=== PATIENT | male | born 1975 | race Caucasian/White ===

== ENCOUNTER 2017-12-22 15:42 | Observation (INO) | payer BC ==
[2017-12-22] MEDS ORDERED: Levofloxacin/Dextrose 5%-Water 750 MG in Premix Bag 1 BAG IV ONE (16:24)
[2017-12-22] MEDS ORDERED: Sodium Chloride 0.9% 1,000 ML IV ONE ×2 (16:24→16:47)
[2017-12-22] MEDS ORDERED: Acetaminophen 325 MG Tab PO ONE (16:25)
[2017-12-22] MEDS ORDERED: Sodium Chloride 0.9% 500 ML IV ONE (16:48)
--- NOTE | 2017-12-22 16:53 | EDM.PDOC ---
ED HPI GENERAL MEDICAL PROBLEM - General Chief Complaint: Fever Stated Complaint: SHAKING AND SLIGHT FEVER Time Seen by Provider: 12/22/17 16:01 Source of Information: Reports: Patient History Limitations: Reports: No Limitations - History of Present Illness INITIAL COMMENTS - FREE TEXT/NARRATIVE: Patient is a 42-year-old male presents ED complaining of fever, rigors, dysuria , increased frequency, decrease amount, and pain along the right inguinal region that radiates along the right flank and into his back. He states symptoms started approximately 2 weeks ago and it has slowly worsened. Fever is noted last night. In addition with onset of fever he's had a slight cough and some intermittent shortness of breath with rigors. He was evaluated today at the local clinic. Blood work was obtained along with a UA. UA was negative. He was sent home with prescription for Cipro since prostate exam elicited increase size and pain on palpation. States he has had similar symptoms about a year ago that relieved on their own accord. He has no history of kidney stones. No abnormal penile discharge. No testicular pain. No testicle pain or swelling. No hematuria. No diarrhea, constipation, or blood in stool. Right Flank Pain Score (Numeric/FACES): 3 - Related Data Allergies Allergy/AdvReac Type Severity Reaction Status Date / Time No Known Allergies Allergy Verified 12/22/17 16:00 Home Meds: Home Meds Fluticasone Propionate [Flonase] 1 spray NASBOTH DAILY PRN 12/11/15 [History] atorvaSTATin Calcium [Atorvastatin Calcium] 10 mg PO BEDTIME 12/11/15 [History] Lactobacillus Combination No.4 [Probiotic] 1 each PO DAILY 01/07/16 [History] Loratadine [Claritin] 10 mg PO DAILY 12/22/17 [History] Losartan Potassium 25 mg PO DAILY 12/23/17 [History] Past Medical History - Past Health History Medical/Surgical History: Denies Medical/Surgical History Cardiovascular History: Reports: High Cholesterol Gastrointestinal History: Reports: Chronic Diarrhea, Other (See Below) Other Gastrointestinal History: lower abdominal pain Genitourinary History: Reports: Other (See Below) Other Genitourinary History: hematuria - Past Surgical History HEENT Surgical History: Reports: Oral Surgery Musculoskeletal Surgical History: Reports: Shoulder Surgery, Other (See Below) Social & Family History - Family History Family Medical History: Noncontributory - Tobacco Use Smoking Status *Q: Never Smoker - Caffeine Use Caffeine Use: Reports: Coffee, Soda - Recreational Drug Use Recreational Drug Use: No ED ROS GENERAL - Review of Systems Review Of Systems: See Below Constitutional: Reports: Fever, Chills, Malaise, Decreased Appetite HEENT: Reports: No Symptoms Respiratory: Reports: Pleuritic Chest Pain (With coughing at times), Cough. Denies: Shortness of Breath Cardiovascular: Reports: No Symptoms Endocrine: Reports: No Symptoms GI/Abdominal: Reports: Abdominal Pain (Right lower quadrant/inguinal region that radiates along the right flank and low back.), Decreased Appetite, Nausea. Denies: Black Stool, Bloody Stool, Constipation, Diarrhea, Difficulty Swallowing, Distension, Flatus, Hematemesis, Hematochezia, Vomiting : Reports: Dysuria, Flank Pain, Frequency, Urgency Musculoskeletal: Reports: Back Pain (Low back pain) Skin: Reports: No Symptoms Neurological: Reports: No Symptoms Psychiatric: Reports: No Symptoms ED EXAM, GI/ABD - Physical Exam Exam: See Below Exam Limited By: No Limitations General Appearance: Alert, WD/WN, Mild Distress Eyes: Bilateral: Normal Appearance Ears: Hearing Grossly Normal Nose: Normal Inspection Throat/Mouth: Normal Inspection, Normal Oropharynx, Normal Voice, No Airway Compromise Head: Atraumatic, Normocephalic Neck: Normal Inspection, Supple Respiratory/Chest: No Respiratory Distress, Lungs Clear, Normal Breath Sounds, No Accessory Muscle Use, Chest Non-Tender Cardiovascular: Normal Peripheral Pulses, Regular Rate, Rhythm GI/Abdominal Exam: Normal Bowel Sounds, Soft, No Organomegaly, No Distention, Tender (Along the right inguinal region, right flank, and low back.) (Male) Exam: Deferred (No complaints) Rectal (Males) Exam: Deferred Back Exam: Normal Inspection. No: CVA Tenderness (L), CVA Tenderness (R) Extremities: Normal Inspection Neurological: Alert, Oriented, CN II-XII Intact, Normal Cognition, No Motor/ Sensory Deficits Course - Vital Signs Last Recorded V/S: Last Vital Signs Temp 97.7 F 12/23/17 08:59 Pulse 73 12/23/17 08:59 Resp 18 12/23/17 08:59 BP 126/98 H 12/23/17 09:47 Pulse Ox 96 12/23/17 08:59 - Orders/Labs/Meds Orders: Active Orders 24 hr Category Date Time Status Regular Diet [DIET] Diet 12/22/17 Dinner Active CULTURE BLOOD [BC] Stat Lab 12/22/17 16:47 Received CULTURE BLOOD [BC] Stat Lab 12/22/17 16:53 Received CULTURE URINE [RM] Stat Lab 12/22/17 16:05 Received CULTURE URINE [RM] Stat Lab 12/22/17 17:45 Results Blood Culture x2 Reflex Set [OM.PC] Stat Oth 12/22/17 16:23 Ordered Medication Orders Acetaminophen (Tylenol) 650 mg PO Q4H PRN PRN Reason: Pain (Mild 1-3)/fever Hydrocodone Bitart/Acetaminophen ([place] 325-5 Mg) 1 tab PO Q4H PRN PRN Reason: Pain (moderate 4-6) Albuterol/Ipratropium (Duoneb 3.0-0.5 Mg/3 Ml) 3 ml NEB Q4H PRN PRN Reason: Shortness Of Breath/wheezing Bisacodyl (Dulcolax) 5 mg PO DAILY PRN PRN Reason: Constipation Docusate Sodium (Colace) 100 mg PO BID PRN PRN Reason: Constipation Flunisolide (Nasalide Nasal [place]) 0 ml NASBOTH Q12H [facility] Last Admin: 12/23/17 11:34 Dose: Not Given Admin: 12/22/17 23:05 Dose: 2 spray Hydralazine HCl (Apresoline) 20 mg IVPUSH Q4H PRN PRN Reason: Hypertension Hydromorphone HCl (Dilaudid) 0.5 mg IVPUSH Q4H PRN PRN Reason: Pain (severe 7-10) Promethazine HCl 12.5 mg/ (Sodium Chloride) 50.5 mls @ 100 mls/hr IV Q6H PRN PRN Reason: Nausea/Vomiting Sodium Chloride (Normal Saline) 1,000 mls @ 100 mls/hr IV ASDIRECTED [facility] Last Admin: 12/23/17 11:35 Dose: 100 mls/hr Infusion: 12/23/17 11:35 Dose: 100 mls/hr Admin: 12/23/17 01:38 Dose: 100 mls/hr Levofloxacin/Dextrose 500 mg/ (Premix) 100 mls @ 100 mls/hr IV Q24H [facility] Last Admin: 12/23/17 09:50 Dose: 100 mls/hr Loratadine (Claritin) 10 mg PO DAILY [facility] Last Admin: 12/23/17 09:48 Dose: 10 mg Lorazepam (Ativan) 2 mg IVPUSH Q4H PRN PRN Reason: Seizures Lorazepam (Ativan) 1 mg IV Q6H PRN PRN Reason: Anxiety Magnesium Sulfate (Pharmacy To Dose - Magnesium Replacement) 0 dose .XX ASDIRECTED PRN PRN Reason: RX TO DOSE MAG Metoprolol Tartrate (Lopressor) 5 mg IVPUSH Q4H PRN PRN Reason: Tachycardia Miscellaneous Information (Remove Patch) 1 ea TRDERM DAILY [facility] Last Admin: 12/23/17 09:49 Dose: Nicotine (Habitrol) 21 mg TRDERM DAILY PRN PRN Reason: Nicotine Dependence Ondansetron HCl (Zofran) 4 mg IV Q6H PRN PRN Reason: Nausea/Vomiting Polyethylene Glycol (Miralax) 17 gm PO DAILY PRN PRN Reason: Constipation Potassium Chloride (Pharmacy To Dose - Potassium Replacement) 0 dose .XX ASDIRECTED PRN PRN Reason: RX TO DOSE K Saccharomyces Boulardii (Florastor) 250 mg PO DAILY [facility] Last Admin: 12/23/17 09:47 Dose: 250 mg Senna/Docusate Sodium (Senna Plus) 1 tab PO BID PRN PRN Reason: Constipation Simvastatin (Zocor) 10 mg PO DAILY [facility] Last Admin: 12/23/17 09:48 Dose: 10 mg Temazepam (Restoril) 15 mg PO BEDTIME PRN PRN Reason: Sleep Last Admin: 12/22/17 23:04 Dose: 15 mg Terazosin HCl (Hytrin) 5 mg PO DAILY [facility] Last Admin: 12/23/17 09:47 Dose: 5 mg Labs: Laboratory Tests 12/22/17 12/22/17 12/22/17 Range/Units 16:12 16:20 16:20 WBC 10.32 H (4.23-9.07) K/mm3 RBC 4.84 (4.63-6.08) M/mm3 Hgb 15.1 (13.7-17.5) gm/L Hct 43.4 (40.1-51.0) % MCV 89.7 (79.0-92.2) fl MCH 31.2 (25.7-32.2) pg MCHC 34.8 (32.2-35.5) g/dl RDW Std Deviation 41.4 (35.1-43.9) fL Plt Count 202 (163-337) K/mm3 MPV 9.9 (9.4-12.3) fl Neut % (Auto) 90.6 H (34.0-67.9) % Lymph % (Auto) 5.2 L (21.8-53.1) % Johnson % (Auto) 3.4 L (5.3-12.2) % Eos % (Auto) 0.4 L (0.8-7.0) Baso % (Auto) 0.2 (0.1-1.2) % Neut # (Auto) 9.35 H (1.78-5.38) K/mm3 Lymph # (Auto) 0.54 L (1.32-3.57) K/mm3 Johnson # (Auto) 0.35 (0.30-0.82) K/mm3 Eos # (Auto) 0.04 (0.04-0.54) K/mm3 Baso # (Auto) 0.02 (0.01-0.08) K/mm3 Manual Slide Review Normal smear PT 12.0 (9.5-12.1) SECONDS INR 1.10 APTT 26 (24-31) SECONDS Sodium 139 (136-145) mEq/L Potassium 3.4 L (3.5-5.1) mEq/L Chloride 105 (98-107) mEq/L Carbon Dioxide 19 L (21-32) mEq/L Anion Gap 18.4 H (5-15) BUN 19 H (7-18) mg/dL Creatinine 1.4 H (0.7-1.3) mg/dL Est Cr Clr Drug Dosing 76.10 mL/min Estimated GFR (MDRD) 55 (>60) mL/min BUN/Creatinine Ratio 13.6 L (14-18) Glucose 160 H (74-106) mg/dL Lactic Acid (0.4-2.0) mmol/L Calcium 9.3 (8.5-10.1) mg/dL Total Bilirubin 1.0 (0.2-1.0) mg/dL AST 22 (15-37) U/L ALT 34 (16-63) U/L Alkaline Phosphatase 87 (46-116) U/L C-Reactive Protein (<1.0) mg/dL Total Protein 7.2 (6.4-8.2) g/dl Albumin 3.6 (3.4-5.0) g/dl Globulin 3.6 gm/dL Albumin/Globulin Ratio 1.0 (1-2) Urine Color (Yellow) Urine Appearance (Clear) Urine pH (5.0-8.0) Ur Specific [place] (1.005-1.030) Urine Protein (Negative) Urine Glucose (UA) (Negative) Urine Ketones (Negative) Urine Occult Blood (Negative) Urine Nitrite (Negative) Urine Bilirubin (Negative) Urine Urobilinogen (0.2-1.0) Ur Leukocyte Esterase (Negative) Urine RBC (0-5) /hpf Urine WBC (0-5) /hpf Urine WBC Clumps (NOT SEEN) /hpf Ur Epithelial Cells (0-5) /hpf Urine Bacteria (FEW) /hpf Urine Mucus (FEW) /hpf 12/22/17 12/22/17 12/22/17 Range/Units 16:20 16:20 16:47 WBC (4.23-9.07) K/mm3 RBC (4.63-6.08) M/mm3 Hgb (13.7-17.5) gm/L Hct (40.1-51.0) % MCV (79.0-92.2) fl MCH (25.7-32.2) pg MCHC (32.2-35.5) g/dl RDW Std Deviation (35.1-43.9) fL Plt Count (163-337) K/mm3 MPV (9.4-12.3) fl Neut % (Auto) (34.0-67.9) % Lymph % (Auto) (21.8-53.1) % Johnson % (Auto) (5.3-12.2) % Eos % (Auto) (0.8-7.0) Baso % (Auto) (0.1-1.2) % Neut # (Auto) (1.78-5.38) K/mm3 Lymph # (Auto) (1.32-3.57) K/mm3 [place] # (Auto) (0.30-0.82) K/mm3 Eos # (Auto) (0.04-0.54) K/mm3 Baso # (Auto) (0.01-0.08) K/mm3 Manual Slide Review PT (9.5-12.1) SECONDS INR APTT (24-31) SECONDS Sodium (136-145) mEq/L Potassium (3.5-5.1) mEq/L Chloride (98-107) mEq/L Carbon Dioxide (21-32) mEq/L Anion Gap (5-15) BUN (7-18) mg/dL Creatinine (0.7-1.3) mg/dL Est Cr Clr Drug Dosing mL/min Estimated GFR (MDRD) (>60) mL/min BUN/Creatinine Ratio (14-18) Glucose (74-106) mg/dL Lactic Acid 1.3 (0.4-2.0) mmol/L Calcium (8.5-10.1) mg/dL Total Bilirubin 1.0 (0.2-1.0) mg/dL AST (15-37) U/L ALT (16-63) U/L Alkaline Phosphatase (46-116) U/L C-Reactive Protein 4.8 H* (<1.0) mg/dL Total Protein (6.4-8.2) g/dl Albumin (3.4-5.0) g/dl Globulin gm/dL Albumin/Globulin Ratio (1-2) Urine Color (Yellow) Urine Appearance (Clear) Urine pH (5.0-8.0) Ur Specific [place] (1.005-1.030) Urine Protein (Negative) Urine Glucose (UA) (Negative) Urine Ketones (Negative) Urine Occult Blood (Negative) Urine Nitrite (Negative) Urine Bilirubin (Negative) Urine Urobilinogen (0.2-1.0) Ur Leukocyte Esterase (Negative) Urine RBC (0-5) /hpf Urine WBC (0-5) /hpf Urine WBC Clumps (NOT SEEN) /hpf Ur Epithelial Cells (0-5) /hpf Urine Bacteria (FEW) /hpf Urine Mucus (FEW) /hpf 12/22/17 Range/Units 16:50 WBC (4.23-9.07) K/mm3 RBC (4.63-6.08) M/mm3 Hgb (13.7-17.5) gm/L Hct (40.1-51.0) % MCV (79.0-92.2) fl MCH (25.7-32.2) pg MCHC (32.2-35.5) g/dl RDW Std Deviation (35.1-43.9) fL Plt Count (163-337) K/mm3 MPV (9.4-12.3) fl Neut % (Auto) (34.0-67.9) % Lymph % (Auto) (21.8-53.1) % [place] % (Auto) (5.3-12.2) % Eos % (Auto) (0.8-7.0) Baso % (Auto) (0.1-1.2) % Neut # (Auto) (1.78-5.38) K/mm3 Lymph # (Auto) (1.32-3.57) K/mm3 [place] # (Auto) (0.30-0.82) K/mm3 Eos # (Auto) (0.04-0.54) K/mm3 Baso # (Auto) (0.01-0.08) K/mm3 Manual Slide Review PT (9.5-12.1) SECONDS INR APTT (24-31) SECONDS Sodium (136-145) mEq/L Potassium (3.5-5.1) mEq/L Chloride (98-107) mEq/L Carbon Dioxide (21-32) mEq/L Anion Gap (5-15) BUN (7-18) mg/dL Creatinine (0.7-1.3) mg/dL Est Cr Clr Drug Dosing mL/min Estimated GFR (MDRD) (>60) mL/min BUN/Creatinine Ratio (14-18) Glucose (74-106) mg/dL Lactic Acid (0.4-2.0) mmol/L Calcium (8.5-10.1) mg/dL Total Bilirubin (0.2-1.0) mg/dL AST (15-37) U/L ALT (16-63) U/L Alkaline Phosphatase (46-116) U/L C-Reactive Protein (<1.0) mg/dL Total Protein (6.4-8.2) g/dl Albumin (3.4-5.0) g/dl Globulin gm/dL Albumin/Globulin Ratio (1-2) Urine Color Yellow (Yellow) Urine Appearance Clear (Clear) Urine pH 7.0 (5.0-8.0) Ur Specific [place] 1.020 (1.005-1.030) Urine Protein 1+ H (Negative) Urine Glucose (UA) Negative (Negative) Urine Ketones Negative (Negative) Urine Occult Blood Trace-lysed H (Negative) Urine Nitrite Negative (Negative) Urine Bilirubin Negative (Negative) Urine Urobilinogen 1.0 (0.2-1.0) Ur Leukocyte Esterase Negative (Negative) Urine RBC Not seen (0-5) /hpf Urine WBC 5-10 H (0-5) /hpf Urine WBC Clumps Rare (NOT SEEN) /hpf Ur Epithelial Cells 0-5 (0-5) /hpf Urine Bacteria Few (FEW) /hpf Urine Mucus Not seen (FEW) /hpf Meds: Medications Generic Name Dose Route Start Last Admin Trade Name Freq PRN Reason Stop Dose Admin Acetaminophen 650 mg 12/22/17 22:23 Tylenol PO Q4H PRN Pain (Mild 1-3)/fever Hydrocodone Bitart/Acetaminophen 1 tab 12/22/17 22:23 [place] 325-5 Mg PO Q4H PRN Pain (moderate 4-6) Albuterol/Ipratropium 3 ml 12/22/17 22:23 Duoneb 3.0-0.5 Mg/3 Ml NEB Q4H PRN Shortness Of Breath/wheezing Bisacodyl 5 mg 12/22/17 22:23 Dulcolax PO DAILY PRN Constipation Docusate Sodium 100 mg 12/22/17 22:23 Colace PO BID PRN Constipation Flunisolide 0 ml 12/22/17 23:00 12/23/17 11:34 Nasalide Nasal [place] NASBOTH Not Given Q12H L[facility]NA Hydralazine HCl 20 mg 12/22/17 22:23 Apresoline IVPUSH Q4H PRN Hypertension Hydromorphone HCl 0.5 mg 12/22/17 22:45 Dilaudid IVPUSH Q4H PRN Pain (severe 7-10) Promethazine HCl 12.5 mg/ 50.5 mls @ 100 mls/hr 12/22/17 22:23 Sodium Chloride IV Q6H PRN Nausea/Vomiting Sodium Chloride 1,000 mls @ 100 mls/hr 12/22/17 22:30 12/23/17 11:35 Normal Saline IV 100 mls/hr ASDIRECTED L[facility]NA Administration Levofloxacin/Dextrose 500 mg/ 100 mls @ 100 mls/hr 12/23/17 09:00 12/23/17 09 :50 Premix IV 100 mls/hr Q24H [facility] Administration Loratadine 10 mg 12/23/17 09:00 12/23/17 09:48 Claritin PO 10 mg DAILY [facility] Administration Lorazepam 2 mg 12/22/17 22:23 Ativan IVPUSH Q4H PRN Seizures Lorazepam 1 mg 12/22/17 22:23 Ativan IV Q6H PRN Anxiety Magnesium Sulfate 0 dose 12/22/17 22:30 Pharmacy To Dose - Magnesium Replacement .XX ASDIRECTED PRN RX TO DOSE MAG Metoprolol Tartrate 5 mg 12/22/17 22:23 Lopressor IVPUSH Q4H PRN Tachycardia Miscellaneous Information 1 ea 12/23/17 09:00 12/23/17 09:49 Remove Patch TRDERM Not Given DAILY [facility] Nicotine 21 mg 12/22/17 22:23 Habitrol TRDERM DAILY PRN Nicotine Dependence Ondansetron HCl 4 mg 12/22/17 22:23 Zofran IV Q6H PRN Nausea/Vomiting Polyethylene Glycol 17 gm 12/22/17 22:23 Miralax PO DAILY PRN Constipation Potassium Chloride 0 dose 12/22/17 22:30 Pharmacy To Dose - Potassium Replacement .XX ASDIRECTED PRN RX TO DOSE K Saccharomyces Boulardii 250 mg 12/23/17 09:00 12/23/17 09:47 Florastor PO 250 mg DAILY [facility] Administration Senna/Docusate Sodium 1 tab 12/22/17 22:23 Senna Plus PO BID PRN Constipation Simvastatin 10 mg 12/23/17 09:00 12/23/17 09:48 Zocor PO 10 mg DAILY [facility] Administration Temazepam 15 mg 12/22/17 22:23 12/22/17 23:04 Restoril PO 15 mg BEDTIME PRN Administration Sleep Terazosin HCl 5 mg 12/23/17 09:00 12/23/17 09:47 Hytrin PO 5 mg DAILY [facility] Administration Discontinued Medications Generic Name Dose Route Start Last Admin Trade Name Freq PRN Reason Stop Dose Admin Acetaminophen 975 mg 12/22/17 16:25 12/22/17 16:32 Tylenol PO 12/22/17 16:26 975 mg NOW ONE Administration Diatrizoate Meglum/Diatrizoate Sod 120 ml 12/22/17 17:07 12/22/17 18:13 Gastrografin 37% PO 12/22/17 17:08 120 ml ONETIME ONE Administration Levofloxacin/Dextrose 750 mg/ 150 mls @ 100 mls/hr 12/22/17 16:24 12/22/17 16 :35 Premix IV 12/22/17 17:53 100 mls/hr Q24H ONE Administration Sodium Chloride 1,000 mls @ 999 mls/hr 12/22/17 16:24 12/22/17 16:35 Normal Saline IV 12/22/17 17:24 999 mls/hr ASDIRECTED ONE Administration Sodium Chloride 1,000 mls @ 999 mls/hr 12/22/17 16:47 12/22/17 19:03 Normal Saline IV 12/22/17 17:47 999 mls/hr ONETIME ONE Administration Sodium Chloride 1,000 mls @ 999 mls/hr 12/22/17 17:00 Normal Saline IV ASDIRECTED [facility] Sodium Chloride 500 mls @ 999 mls/hr 12/22/17 16:48 12/22/17 20:14 Normal Saline IV 12/22/17 17:18 999 mls/hr .BOLUS ONE Administration Levofloxacin/Dextrose Confirm 12/23/17 09:33 12/23/17 10:48 Levaquin In D5w 500 Mg/100 Ml Administered 12/23/17 09:34 Not Given Dose 100 mls @ as directed IV .STK-MED ONE Iopamidol 150 ml 12/22/17 17:07 12/22/17 18:13 Isovue-300 (61%) IVPUSH 12/22/17 17:08 150 ml ONETIME ONE Administration Non-Formulary Medication 1 each 12/23/17 09:00 Lactobacillus Combination No.4 [Probiotic] PO DAILY [facility] Potassium Chloride 40 meq 12/23/17 00:00 12/23/17 06:39 Klor-Con M20 PO 12/23/17 04:01 40 meq Q4H [facility] Administration Potassium Chloride 40 meq 12/23/17 06:45 12/23/17 06:55 Klor-Con M20 PO 12/23/17 06:46 Not Given Q4H [facility] - Re-Assessments/Exams Free Text/Narrative Re-Assessment/Exam: On examination patient is warm to touch, tachycardic, complains of pain to the right lower abdomen that radiates around the right flank and low back. He also has a slight cough. IV established with normal saline. Will initiate IVF's per sepsis criteria. Requires 3100 mL of IV fluids. Ordered Levaquin 750 IV. Tylenol 975 mg by mouth. Initial labs and studies include: CBC, chem 14, CRP, blood cultures 2, UA, lactic acid, coag studies, chest x-ray two-view, and also CT the abdomen and pelvis with IV contrast. Labs reviewed: White blood cell count 10.32, neutrophil percentage elevated 90.6, bands are 9.35. Potassium 3.4, AG 18.4, creatinine 1.4, glucose 160, lactic acid 1.3, CRP of 4.8, UA protein one plus, occult plus trace, urine wbc' s 5-10. Urine culture ordered. Chest x-ray impression: Nodular density within the left hilum, noncontrast chest CT recommended. Other incidental findings. Nothing acute is otherwise seen. CT of the chest wo contrast ordered. CT abdomen and pelvis impression: Colonic diverticulosis. No CT evidence of diverticulitis. Unfortunately the CT the abdomen and pelvis with contrast was obtained prior to the CT of the chest. CT of the chest while to be performed on an outpatient basis. 1924 Reassessment, patient is feeling better. Temp 99.4 F. HR 90's. Discussed admission to the hospital with the patient. He agrees admission for IV antibiotics would be okay. 12/22/17 19:[address] Portillo, he has accepted the patient. MCG to be completed by nursing staff. Requests placing order for regular diet. Departure - Departure Time of Disposition: 19:34 Disposition: Admitted As Inpatient 64 Condition: Good Clinical Impression: Prostatitis, acute - Discharge Information - My Orders Last 24 Hours: My Active Orders 12/22/17 16:05 CULTURE URINE [RM] Stat 12/22/17 16:23 Blood Culture x2 Reflex Set [OM.PC] Stat 12/22/17 16:47 CULTURE BLOOD [BC] Stat 12/22/17 16:53 CULTURE BLOOD [BC] Stat 12/22/17 17:45 CULTURE URINE [RM] Stat 12/22/17 Dinner Regular Diet [DIET] - Assessment/Plan Last 24 Hours: My Active Orders 12/22/17 16:05 CULTURE URINE [RM] Stat 12/22/17 16:23 Blood Culture x2 Reflex Set [OM.PC] Stat 12/22/17 16:47 CULTURE BLOOD [BC] Stat 12/22/17 16:53 CULTURE BLOOD [BC] Stat 12/22/17 17:45 CULTURE URINE [RM] Stat 12/22/17 Dinner Regular Diet [DIET]
[2017-12-22] MEDS ORDERED: Sodium Chloride 0.9% 1,000 ML IV SCH (17:00)
[2017-12-22] MEDS ORDERED: Diatrizoate Meglumine/Diatrizoate Sodium 37% 120 ML Bottle PO ONE (17:07)
[2017-12-22] MEDS ORDERED: Iopamidol 612 MG/ML 150 ML Bottle IVPUSH ONE (17:07)
--- NOTE | 2017-12-22 17:25 | CR ---
Chest: Portable view of the chest was obtained. Comparison: Prior chest x-ray of 05/13/15. Heart size and mediastinum are within normal limits for portable technique. Prior cervical spine surgery is seen. Lungs are clear without acute parenchymal change. Nodular density is identified within left hilum possibly due to vascular confluence although noncontrast chest CT recommended to exclude a pulmonary mass. Impression: 1. Nodular density within left hilum, noncontrast chest CT recommended. 2. Other incidental findings. Nothing acute is otherwise seen. Diagnostic code #9
[2017-12-22] MEDS ORDERED: Bisacodyl 5 MG Tab PO PRN (22:23)
[2017-12-22] MEDS ORDERED: Acetaminophen 325 MG Tab PO PRN (22:23)
[2017-12-22] MEDS ORDERED: Metoprolol Tartrate 5 MG/5 ML SDV IVPUSH PRN (22:23)
[2017-12-22] MEDS ORDERED: Ondansetron 4 MG/2 ML SDV IV PRN (22:23)
[2017-12-22] MEDS ORDERED: Acetaminophen/HYDROcodone 325-5 MG Tab PO PRN (22:23)
[2017-12-22] MEDS ORDERED: Nicotine 21 MG/24 Hr Patch TRDERM PRN (22:23)
[2017-12-22] MEDS ORDERED: Promethazine 12.5 MG in Sodium Chloride 0.9% 50 ML IV PRN (22:23)
[2017-12-22] MEDS ORDERED: hydrALAZINE 20 MG/ML SDV IVPUSH PRN (22:23)
[2017-12-22] MEDS ORDERED: Docusate Sodium 100 MG Cap PO PRN (22:23)
[2017-12-22] MEDS ORDERED: LORazepam 2 MG/ML SDV IVPUSH PRN (22:23)
[2017-12-22] MEDS ORDERED: LORazepam 2 MG/ML SDV IV PRN (22:23)
[2017-12-22] MEDS ORDERED: Polyethylene Glycol 3350 Powder 17 GM Packet PO PRN (22:23)
[2017-12-22] MEDS ORDERED: Albuterol/Ipratropium 3.0-0.5 MG/3 ML Neb Soln NEB PRN (22:23)
[2017-12-22] MEDS ORDERED: HYDROmorphone 0.5 MG/0.5 ML Syringe IVPUSH PRN (22:45)
[2017-12-22] MEDS: Temazepam 15 MG Cap PO PRN (23:04)
[2017-12-22] MEDS: Potassium Chloride 20 MEQ Tab.ER PO SCH (23:04)
[2017-12-23] MEDS: Sodium Chloride 0.9% 1,000 ML IV SCH ×3 (01:38→21:32)
[2017-12-23] MEDS: Potassium Chloride 20 MEQ Tab.ER PO SCH (06:39)
[2017-12-23] MEDS ORDERED: Potassium Chloride 20 MEQ Tab.ER PO SCH (06:45)
--- NOTE | 2017-12-23 07:30 | CT ---
CT abdomen and pelvis Technique: Multiple axial sections were obtained from above the dome of the diaphragm inferiorly through the pubic symphysis. Intravenous and oral contrast was utilized. Comparison: Prior CT abdomen and pelvis exam of 12/12/15. Findings: Visualized lung bases show nothing acute. Liver shows no focal parenchymal abnormality. Spleen appears within normal limits. Slight thickening of the distal esophageal wall is seen possibly due to chronic gastroesophageal reflux. Adrenal glands show no nodule. Pancreas is within normal limits. Gallbladder contains no calcified gallstones. Kidneys show symmetric contrast enhancement without hydronephrosis or mass. Aorta shows no aneurysmal dilatation. No retroperitoneal adenopathy is seen. Appendix is seen and is felt to be normal. No pelvic mass or adenopathy is seen. No free fluid or inflammatory change is seen. Minimal diverticulosis is seen near the junction of descending and sigmoid colon without findings of diverticulitis. Bone window settings were reviewed showing scattered degenerative change within the spine. Several anterior wedge deformities noted at the thoracolumbar junction which appear stable and likely are developmental. Impression: 1. Mild thickening of the distal esophageal wall possibly due to chronic gastroesophageal reflux. 2. Several diverticuli without findings of diverticulitis at the junction of the descending and sigmoid colon. 3. Other incidental findings as noted above. Diagnostic code #2 I agree with preliminary report issued by [employer] ([employer] preliminary report dictated on12/22/17, 7:38 PM Central Time) (code #2)
--- NOTE | 2017-12-23 08:22 | PCM.HP ---
H&P History of Present Illness - General Date of Service: 12/23/17 Admit Problem/Dx: Admission Diagnosis/Problem Admission Diagnosis/Problem Prostatitis Source of Information: Patient, Old Records, Provider, RN, RN Notes Reviewed History Limitations: Reports: No Limitations - History of Present Illness Initial Comments - Free Text/Narative: Tam Devlin is a 42 yo male who presented to our ED yesterday evening with complaints of fever, rigors, dysuria, increased urinary frequency, decrease in urine amount, and pain along the right inguinal region which radiates into the right flank and back. Reports symptoms started 2 weeks ago and have been getting worse. He reports the fever started last night and he has had a slight cough with some intermittent shortness of breath. He was seen in the local clinic and a UA was obtained which was negative. He was sent home with a Cipro prescription as his rectal exam noted a large prostate and pain on palpation. He reportedly had symptoms which were similar approximate one year ago and this resolved without treatment. Denies any testicular pain or swelling. Denies hematuria, diarrhea, constipation, or hematochezia. In the ED temperature was 100.4. Pulse was 113. Respirations 18. BP 126/61. Pulse ox 96%. Labs were obtained: W CBC was elevated at 10.32. Hemoglobin good at 15.1. Hematocrit 43.4. He is normocytic. Platelet are good at 202, 000. Neutrophils are elevated at 90.6. PT is 12. INR 1.10. APTT is 26. Sodium is 139. Potassium 3.4. Chloride is 105. Carbon dioxide low at 19. Anion gap is quite high at 18.4. BUN is high at 19. Creatinine is high at 1.4. EGFR is 55. Glucose is high at 160. Calcium is 9.3. Bilirubin 1.0. Liver enzymes looked good with AST at 22, ALT of 34, alkaline phosphatase of 87. Protein is 7.2. Albumin 3.6. Lactic acid is 1.3. Total bilirubin is 1.0. CRP is 4.8. UA is obtained and is negative however trace lysed occult blood 5-10 WBCs are noted. He is given 975 mg by mouth Tylenol and started on 750 mg of Levaquin. He is given a 3100 mL fluid bolus. Urine cultures ordered. Blood cultures were ordered. CT of the abdomen and pelvis with contrast is obtained and interpreted by Dr. Cabrera as "1. Mild thickening of the distal esophageal wall possibly due to chronic esophageal reflux disease. 2. Several diverticula without findings of diverticulitis at the junction of the descending and sigmoid colon. 3. Other incidental findings noted above." Chest x-rays obtained and compared to prior chest x-ray from 2016. This is interpreted by Dr. Cabrera as "1. Nodular density with the left hilum, noncontrast chest CT recommended. 2. Other incidental findings. Nothing acute is otherwise seen." He carries a history of: HLD, chronic diarrhea, hematuria. He was never a smoker. He is a full code. His PCP is Key David PA-C. He is subsequently admitted to the medical floor observation status. Right Flank Pain Score (Numeric/FACES): 3 - Related Data Allergies/Adverse Reactions: Allergies Allergy/AdvReac Type Severity Reaction Status Date / Time No Known Allergies Allergy Verified 12/22/17 16:00 Home Medications: Home Meds Fluticasone Propionate [Flonase] 1 spray NASBOTH DAILY PRN 12/11/15 [History] atorvaSTATin Calcium [Atorvastatin Calcium] 10 mg PO BEDTIME 12/11/15 [History] Lactobacillus Combination No.4 [Probiotic] 1 each PO DAILY 01/07/16 [History] Loratadine [Claritin] 10 mg PO DAILY 12/22/17 [History] Losartan Potassium 25 mg PO DAILY 12/23/17 [History] Past Medical History - Past Health History Medical/Surgical History: Denies Medical/Surgical History Cardiovascular History: Reports: High Cholesterol, Hypertension Gastrointestinal History: Reports: Other (See Below) Other Gastrointestinal History: lower abdominal pain-recently off and on Genitourinary History: Reports: Other (See Below) Other Genitourinary History: hematuria just recently with this diagnosis Oncologic (Cancer) History: Reports: None - Infectious Disease History Infectious Disease History: Reports: Chicken Pox - Past Surgical History HEENT Surgical History: Reports: Oral Surgery GI Surgical History: Reports: Appendectomy, Colonoscopy Musculoskeletal Surgical History: Reports: Other (See Below) Other Musculoskeletal Surgeries/Procedures:: collar bone sx, kush in leg, and cervical sx Social & Family History - Family History Family Medical History: Noncontributory - Tobacco Use Smoking Status *Q: Never Smoker - Caffeine Use Caffeine Use: Reports: Coffee - Recreational Drug Use Recreational Drug Use: No H&P Review of Systems - Review of Systems: Review Of Systems: See Below General: Reports: Fever, Chills, Malaise, Weakness, Fatigue, Decreased Appetite HEENT: Reports: No Symptoms. Denies: Sore Throat, Visual Changes Pulmonary: Reports: Pleuritic Chest Pain (occasional with coughing fits ), Cough. Denies: Shortness of Breath, Wheezing, Sputum Cardiovascular: Reports: No Symptoms. Denies: Chest Pain, Palpitations, Dyspnea on Exertion, Lightheadedness Gastrointestinal: Reports: No Symptoms, Abdominal Pain (RLQ and inguinal region radiating into right flank and lower back ), Nausea. Denies: Constipation, Diarrhea, Difficulty Swallowing, Vomiting Genitourinary: Reports: Dysuria, Frequency, Pain, Urgency, Hematuria (chronic), Retention, Flank Pain Musculoskeletal: Reports: Back Pain (lower) Skin: Reports: No Symptoms Psychiatric: Reports: No Symptoms Neurological: Reports: No Symptoms. Denies: Confusion Hematologic/Lymphatic: Reports: No Symptoms Immunologic: Reports: No Symptoms Exam - Exam Exam: See Below - Vital Signs Vital Signs: Last Vital Signs Temp 97.9 F 12/23/17 03:34 Pulse 65 12/23/17 03:34 Resp 16 12/23/17 03:34 BP 115/73 12/23/17 03:34 Pulse Ox 97 12/23/17 03:34 Weight: 227 lb 12.8 oz - Exam Quality Assessment: DVT Prophylaxis General: Alert, Oriented, Cooperative. No: Mild Distress HEENT: Conjunctiva Clear, EACs Clear, EOMI, Hearing Intact, Mucosa Moist & [place] , Nares Patent, Normal Nasal Septum, Posterior Pharynx Clear, PERRLA Neck: Supple, Trachea Midline Lungs: Clear to Auscultation, Normal Respiratory Effort Cardiovascular: Regular Rate, Regular Rhythm GI/Abdominal Exam: Normal Bowel Sounds, Soft, Non-Tender, No Distention, No Abnormal Bruit (Male) Exam: Deferred Rectal (Males) Exam: Deferred, Other (Dr. Portillo disccused this with paitent on admission however he refused saying he had just had rectal exam at clinic) Back Exam: Normal Inspection, Full Range of Motion Extremities: Normal Inspection, Normal Range of Motion, Non-Tender, No Pedal Edema, Normal Capillary Refill Peripheral Pulses: 2+: Dorsalis Pedis (L), Dorsalis Pedis (R), 3+: Radial (L), Radial (R) Skin: Warm, Dry, Intact Neurological: Cranial Nerves Intact (grossly ) Neuro Extensive - Mental Status: Alert, Oriented x3, Normal Mood/Affect, Normal Cognition, Memory Intact - Patient Data Lab Results Last 24 hrs: Laboratory Results - last 24 hr 12/22/17 12/22/17 12/22/17 Range/Units 16:12 16:20 16:20 WBC 10.32 H (4.23-9.07) K/mm3 RBC 4.84 (4.63-6.08) M/mm3 Hgb 15.1 (13.7-17.5) gm/L Hct 43.4 (40.1-51.0) % MCV 89.7 (79.0-92.2) fl MCH 31.2 (25.7-32.2) pg MCHC 34.8 (32.2-35.5) g/dl RDW Std Deviation 41.4 (35.1-43.9) fL Plt Count 202 (163-337) K/mm3 MPV 9.9 (9.4-12.3) fl Neut % (Auto) 90.6 H (34.0-67.9) % Lymph % (Auto) 5.2 L (21.8-53.1) % [place] % (Auto) 3.4 L (5.3-12.2) % Eos % (Auto) 0.4 L (0.8-7.0) Baso % (Auto) 0.2 (0.1-1.2) % Neut # (Auto) 9.35 H (1.78-5.38) K/mm3 Lymph # (Auto) 0.54 L (1.32-3.57) K/mm3 [place] # (Auto) 0.35 (0.30-0.82) K/mm3 Eos # (Auto) 0.04 (0.04-0.54) K/mm3 Baso # (Auto) 0.02 (0.01-0.08) K/mm3 Manual Slide Review Normal smear PT 12.0 (9.5-12.1) SECONDS INR 1.10 APTT 26 (24-31) SECONDS Sodium 139 (136-145) mEq/L Potassium 3.4 L (3.5-5.1) mEq/L Chloride 105 (98-107) mEq/L Carbon Dioxide 19 L (21-32) mEq/L Anion Gap 18.4 H (5-15) BUN 19 H (7-18) mg/dL Creatinine 1.4 H (0.7-1.3) mg/dL Est Cr Clr Drug Dosing 76.10 mL/min Estimated GFR (MDRD) 55 (>60) mL/min BUN/Creatinine Ratio 13.6 L (14-18) Glucose 160 H (74-106) mg/dL Lactic Acid (0.4-2.0) mmol/L Calcium 9.3 (8.5-10.1) mg/dL Magnesium (1.8-2.4) mg/dl Total Bilirubin 1.0 (0.2-1.0) mg/dL AST 22 (15-37) U/L ALT 34 (16-63) U/L Alkaline Phosphatase 87 (46-116) U/L C-Reactive Protein (<1.0) mg/dL Total Protein 7.2 (6.4-8.2) g/dl Albumin 3.6 (3.4-5.0) g/dl Globulin 3.6 gm/dL Albumin/Globulin Ratio 1.0 (1-2) Urine Color (Yellow) Urine Appearance (Clear) Urine pH (5.0-8.0) Ur Specific [place] (1.005-1.030) Urine Protein (Negative) Urine Glucose (UA) (Negative) Urine Ketones (Negative) Urine Occult Blood (Negative) Urine Nitrite (Negative) Urine Bilirubin (Negative) Urine Urobilinogen (0.2-1.0) Ur Leukocyte Esterase (Negative) Urine RBC (0-5) /hpf Urine WBC (0-5) /hpf Urine WBC Clumps (NOT SEEN) /hpf Ur Epithelial Cells (0-5) /hpf Urine Bacteria (FEW) /hpf Urine Mucus (FEW) /hpf 12/22/17 12/22/17 12/22/17 Range/Units 16:20 16:20 16:47 WBC (4.23-9.07) K/mm3 RBC (4.63-6.08) M/mm3 Hgb (13.7-17.5) gm/L Hct (40.1-51.0) % MCV (79.0-92.2) fl MCH (25.7-32.2) pg MCHC (32.2-35.5) g/dl RDW Std Deviation (35.1-43.9) fL Plt Count (163-337) K/mm3 MPV (9.4-12.3) fl Neut % (Auto) (34.0-67.9) % Lymph % (Auto) (21.8-53.1) % [place] % (Auto) (5.3-12.2) % Eos % (Auto) (0.8-7.0) Baso % (Auto) (0.1-1.2) % Neut # (Auto) (1.78-5.38) K/mm3 Lymph # (Auto) (1.32-3.57) K/mm3 [place] # (Auto) (0.30-0.82) K/mm3 Eos # (Auto) (0.04-0.54) K/mm3 Baso # (Auto) (0.01-0.08) K/mm3 Manual Slide Review PT (9.5-12.1) SECONDS INR APTT (24-31) SECONDS Sodium (136-145) mEq/L Potassium (3.5-5.1) mEq/L Chloride (98-107) mEq/L Carbon Dioxide (21-32) mEq/L Anion Gap (5-15) BUN (7-18) mg/dL Creatinine (0.7-1.3) mg/dL Est Cr Clr Drug Dosing mL/min Estimated GFR (MDRD) (>60) mL/min BUN/Creatinine Ratio (14-18) Glucose (74-106) mg/dL Lactic Acid 1.3 (0.4-2.0) mmol/L Calcium (8.5-10.1) mg/dL Magnesium (1.8-2.4) mg/dl Total Bilirubin 1.0 (0.2-1.0) mg/dL AST (15-37) U/L ALT (16-63) U/L Alkaline Phosphatase (46-116) U/L C-Reactive Protein 4.8 H* (<1.0) mg/dL Total Protein (6.4-8.2) g/dl Albumin (3.4-5.0) g/dl Globulin gm/dL Albumin/Globulin Ratio (1-2) Urine Color (Yellow) Urine Appearance (Clear) Urine pH (5.0-8.0) Ur Specific [place] (1.005-1.030) Urine Protein (Negative) Urine Glucose (UA) (Negative) Urine Ketones (Negative) Urine Occult Blood (Negative) Urine Nitrite (Negative) Urine Bilirubin (Negative) Urine Urobilinogen (0.2-1.0) Ur Leukocyte Esterase (Negative) Urine RBC (0-5) /hpf Urine WBC (0-5) /hpf Urine WBC Clumps (NOT SEEN) /hpf Ur Epithelial Cells (0-5) /hpf Urine Bacteria (FEW) /hpf Urine Mucus (FEW) /hpf 12/22/17 12/23/17 12/23/17 Range/Units 16:50 06:20 06:20 WBC 6.46 (4.23-9.07) K/mm3 RBC 4.48 L (4.63-6.08) M/mm3 Hgb 13.9 (13.7-17.5) gm/L Hct 41.4 (40.1-51.0) % MCV 92.4 H (79.0-92.2) fl MCH 31.0 (25.7-32.2) pg MCHC 33.6 (32.2-35.5) g/dl RDW Std Deviation 43.3 (35.1-43.9) fL Plt Count 178 (163-337) K/mm3 MPV 10.4 (9.4-12.3) fl Neut % (Auto) 54.6 (34.0-67.9) % Lymph % (Auto) 26.9 (21.8-53.1) % [place] % (Auto) 16.9 H (5.3-12.2) % Eos % (Auto) 1.1 (0.8-7.0) Baso % (Auto) 0.3 (0.1-1.2) % Neut # (Auto) 3.53 (1.78-5.38) K/mm3 Lymph # (Auto) 1.74 (1.32-3.57) K/mm3 [place] # (Auto) 1.09 H (0.30-0.82) K/mm3 Eos # (Auto) 0.07 (0.04-0.54) K/mm3 Baso # (Auto) 0.02 (0.01-0.08) K/mm3 Manual Slide Review Normal smear PT (9.5-12.1) SECONDS INR APTT (24-31) SECONDS Sodium 143 (136-145) mEq/L Potassium 4.4 (3.5-5.1) mEq/L Chloride 112 H (98-107) mEq/L Carbon Dioxide 25 (21-32) mEq/L Anion Gap 10.4 (5-15) BUN 12 (7-18) mg/dL Creatinine 1.1 (0.7-1.3) mg/dL Est Cr Clr Drug Dosing 96.85 mL/min Estimated GFR (MDRD) > 60 (>60) mL/min BUN/Creatinine Ratio 10.9 L (14-18) Glucose 122 H (74-106) mg/dL Lactic Acid (0.4-2.0) mmol/L Calcium 8.4 L (8.5-10.1) mg/dL Magnesium 2.1 (1.8-2.4) mg/dl Total Bilirubin (0.2-1.0) mg/dL AST (15-37) U/L ALT (16-63) U/L Alkaline Phosphatase (46-116) U/L C-Reactive Protein 5.4 H* (<1.0) mg/dL Total Protein (6.4-8.2) g/dl Albumin (3.4-5.0) g/dl Globulin gm/dL Albumin/Globulin Ratio (1-2) Urine Color Yellow (Yellow) Urine Appearance Clear (Clear) Urine pH 7.0 (5.0-8.0) Ur Specific [place] 1.020 (1.005-1.030) Urine Protein 1+ H (Negative) Urine Glucose (UA) Negative (Negative) Urine Ketones Negative (Negative) Urine Occult Blood Trace-lysed H (Negative) Urine Nitrite Negative (Negative) Urine Bilirubin Negative (Negative) Urine Urobilinogen 1.0 (0.2-1.0) Ur Leukocyte Esterase Negative (Negative) Urine RBC Not seen (0-5) /hpf Urine WBC 5-10 H (0-5) /hpf Urine WBC Clumps Rare (NOT SEEN) /hpf Ur Epithelial Cells 0-5 (0-5) /hpf Urine Bacteria Few (FEW) /hpf Urine Mucus Not seen (FEW) /hpf Result Diagrams: 12/23/17 06:20 12/23/17 06:20 - Problem List (1) HLD (hyperlipidemia) SNOMED Code(s): 06129284 ICD Code: E78.5 - HYPERLIPIDEMIA, UNSPECIFIED Status: Acute Priority: High Current Visit: Yes (2) Prostatitis, acute SNOMED Code(s): 06491070 ICD Code: N41.0 - ACUTE PROSTATITIS Status: Acute Priority: High Current Visit: Yes Problem List Initiated/Reviewed/Updated: Yes Orders Last 24hrs: Active Orders 24 hr Category Date Time Status Patient Status [ADT] Routine ADT 12/22/17 20:30 Active Height and Weight [RC] 04 Care 12/22/17 22:23 Active Intake and Output [RC] 04,16 Care 12/22/17 22:23 Active Oxygen Therapy [RC] PRN Care 12/22/17 22:23 Active RT Aerosol Therapy [RC] ASDIRECTED Care 12/22/17 22:25 Active Up ad [place] [RC] ASDIRECTED Care 12/22/17 22:23 Active VTE/DVT Education [RC] PER UNIT ROUTINE Care 12/22/17 22:23 Active Vital Signs [RC] Q4HR Care 12/22/17 22:23 Active Regular Diet [DIET] Diet 12/22/17 Dinner Active A1C [GLYCOSYLATED HEMOGLOBIN,HGBA1C] [CHEM] AM Lab 12/23/17 06:20 Received BASIC METABOLIC PANEL,BMP [CHEM] AM Lab 12/24/17 05:11 Ordered BASIC METABOLIC PANEL,BMP [CHEM] AM Lab 12/25/17 05:11 Ordered BASIC METABOLIC PANEL,BMP [CHEM] AM Lab 12/26/17 05:11 Ordered BASIC METABOLIC PANEL,BMP [CHEM] AM Lab 12/27/17 05:11 Ordered C-REACTIVE PROTEIN [CHEM] AM Lab 12/24/17 05:11 Ordered C-REACTIVE PROTEIN [CHEM] AM Lab 12/25/17 05:11 Ordered CBC WITH AUTO DIFF [HEME] AM Lab 12/24/17 05:11 Ordered CBC WITH AUTO DIFF [HEME] AM Lab 12/25/17 05:11 Ordered CBC WITH AUTO DIFF [HEME] AM Lab 12/26/17 05:11 Ordered CBC WITH AUTO DIFF [HEME] AM Lab 12/27/17 05:11 Ordered CULTURE BLOOD [BC] Stat Lab 12/22/17 16:47 Received CULTURE BLOOD [BC] Stat Lab 12/22/17 16:53 Received CULTURE URINE [RM] Stat Lab 12/22/17 16:05 Received CULTURE URINE [RM] Stat Lab 12/22/17 17:45 Ordered MAGNESIUM [CHEM] AM Lab 12/24/17 05:11 Ordered MAGNESIUM [CHEM] AM Lab 12/25/17 05:11 Ordered MAGNESIUM [CHEM] AM Lab 12/26/17 05:11 Ordered MAGNESIUM [CHEM] AM Lab 12/27/17 05:11 Ordered Acetaminophen [Tylenol] Med 12/22/17 22:23 Active 650 mg PO Q4H PRN Acetaminophen/HYDROcodone [[place] 325-5 MG] Med 12/22/17 22:23 Active 1 tab PO Q4H PRN Albuterol/Ipratropium [DuoNeb 3.0-0.5 MG/3 ML] Med 12/22/17 22:23 Active 3 ml NEB Q4H PRN Bisacodyl [Dulcolax] Med 12/22/17 22:23 Active 5 mg PO DAILY PRN Docusate Sodium [Colace] Med 12/22/17 22:23 Active 100 mg PO BID PRN Docusate Sodium/Sennosides [Senna Plus] Med 12/22/17 22:23 Active 1 tab PO BID PRN Flunisolide [Nasalide Nasal [place]] Med 12/22/17 23:00 Active 0 ml NASBOTH Q12H HYDROmorphone [Dilaudid] Med 12/22/17 22:45 Active 0.5 mg IVPUSH Q4H PRN LORazepam [Ativan] Med 12/22/17 22:23 Active 1 mg IV Q6H PRN LORazepam [Ativan] Med 12/22/17 22:23 Active 2 mg IVPUSH Q4H PRN Levofloxacin/Dextrose 5%-Water [Levaquin in D5W 500 MG/ Med 12/23/17 09:00 Active 100 ML] 500 mg Premix Bag 1 bag IV Q24H Loratadine [Claritin] Med 12/23/17 09:00 Active 10 mg PO DAILY Magnesium Rep Pharmacy to Dose [Pharmacy to Dose - Med 12/22/17 22:30 Active Magnesium Replacement] 0 dose .XX ASDIRECTED PRN Metoprolol Tartrate [Lopressor] Med 12/22/17 22:23 Active 5 mg IVPUSH Q4H PRN Nicotine [Habitrol] Med 12/22/17 22:23 Active 21 mg TRDERM DAILY PRN Ondansetron [Zofran] Med 12/22/17 22:23 Active 4 mg IV Q6H PRN Polyethylene Glycol 3350 [MiraLAX] Med 12/22/17 22:23 Active 17 gm PO DAILY PRN Potassium Rep Pharmacy to Dose [Pharmacy to Dose - Med 12/22/17 22:30 Active Potassium Replacement] 0 dose .XX ASDIRECTED PRN Promethazine [Phenergan] 12.5 mg Med 12/22/17 22:23 Active Sodium Chloride 0.9% [Normal Saline] 50 ml IV Q6H Remove Patch Med 12/23/17 09:00 Active 1 ea TRDERM DAILY Saccharomyces Boulardii [Florastor] Med 12/23/17 09:00 Active 250 mg PO DAILY Simvastatin [Zocor] Med 12/23/17 09:00 Active 10 mg PO DAILY Sodium Chloride 0.9% [Normal Saline] 1,000 ml Med 12/22/17 22:30 Active IV ASDIRECTED Temazepam [Restoril] Med 12/22/17 22:23 Active 15 mg PO BEDTIME PRN Terazosin [Hytrin] Med 12/23/17 09:00 Active 5 mg PO DAILY hydrALAZINE [Apresoline] Med 12/22/17 22:23 Active 20 mg IVPUSH Q4H PRN Blood Culture x2 Reflex Set [OM.PC] Stat Oth 12/22/17 16:23 Ordered Sequential Compression Device [OM.PC] Per Unit Routine Oth 12/22/17 22:24 Ordered Resuscitation Status Routine Resus Stat 12/22/17 22:11 Ordered Medication Orders Acetaminophen (Tylenol) 650 mg PO Q4H PRN PRN Reason: Pain (Mild 1-3)/fever Hydrocodone Bitart/Acetaminophen ([place] 325-5 Mg) 1 tab PO Q4H PRN PRN Reason: Pain (moderate 4-6) Albuterol/Ipratropium (Duoneb 3.0-0.5 Mg/3 Ml) 3 ml NEB Q4H PRN PRN Reason: Shortness Of Breath/wheezing Bisacodyl (Dulcolax) 5 mg PO DAILY PRN PRN Reason: Constipation Docusate Sodium (Colace) 100 mg PO BID PRN PRN Reason: Constipation Flunisolide (Nasalide Nasal [place]) 0 ml NASBOTH Q12H [facility] Last Admin: 12/22/17 23:05 Dose: 2 spray Hydralazine HCl (Apresoline) 20 mg IVPUSH Q4H PRN PRN Reason: Hypertension Hydromorphone HCl (Dilaudid) 0.5 mg IVPUSH Q4H PRN PRN Reason: Pain (severe 7-10) Promethazine HCl 12.5 mg/ (Sodium Chloride) 50.5 mls @ 100 mls/hr IV Q6H PRN PRN Reason: Nausea/Vomiting Sodium Chloride (Normal Saline) 1,000 mls @ 100 mls/hr IV ASDIRECTED [facility] Last Admin: 12/23/17 01:38 Dose: 100 mls/hr Levofloxacin/Dextrose 500 mg/ (Premix) 100 mls @ 100 mls/hr IV Q24H [facility] Loratadine (Claritin) 10 mg PO DAILY [facility] Lorazepam (Ativan) 2 mg IVPUSH Q4H PRN PRN Reason: Seizures Lorazepam (Ativan) 1 mg IV Q6H PRN PRN Reason: Anxiety Magnesium Sulfate (Pharmacy To Dose - Magnesium Replacement) 0 dose .XX ASDIRECTED PRN PRN Reason: RX TO DOSE MAG Metoprolol Tartrate (Lopressor) 5 mg IVPUSH Q4H PRN PRN Reason: Tachycardia Miscellaneous Information (Remove Patch) 1 ea TRDERM DAILY [facility] Nicotine (Habitrol) 21 mg TRDERM DAILY PRN PRN Reason: Nicotine Dependence Ondansetron HCl (Zofran) 4 mg IV Q6H PRN PRN Reason: Nausea/Vomiting Polyethylene Glycol (Miralax) 17 gm PO DAILY PRN PRN Reason: Constipation Potassium Chloride (Pharmacy To Dose - Potassium Replacement) 0 dose .XX ASDIRECTED PRN PRN Reason: RX TO DOSE K Saccharomyces Boulardii (Florastor) 250 mg PO DAILY [facility] Senna/Docusate Sodium (Senna Plus) 1 tab PO BID PRN PRN Reason: Constipation Simvastatin (Zocor) 10 mg PO DAILY [facility] Temazepam (Restoril) 15 mg PO BEDTIME PRN PRN Reason: Sleep Last Admin: 12/22/17 23:04 Dose: 15 mg Terazosin HCl (Hytrin) 5 mg PO DAILY [facility] Assessment/Plan Comment:: I/P: Acute: Prostatitis -Reports fever, rigors, increased urine frequency and decreased amount. 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 -WBC 10.32-->6.46 -CRP 4.8-->5.4 -Tylenol for pain/fever; other pain meds as ordered -Fluids as ordered -Continue home probiotic -Levaquin started in ED - continue -Hytrin 5mg PO dialy -Ambulate -Blood culture obtained and pending -Urine cultures pending Questionable lung nodule -Nodular density noted within left hilum -Radiology recommending non-contrast chest CT - ordered -Non-smoker Mild thickening of distal esophagus on CT -Likely due to chronic GERD -Has not had symptoms of GERD -Denies PPI/H2 farhan use in past -Will start PO protonix here -PCP to follow-up Chronic: HLD Chronic diarrhea Hematuria Plan: Admit to medical floor observation status Other orders as indicated above Home medications as ordered He is ambulatory so no need for PT/OT now DVT Prophylaxis: Ambulate and SCDs GI Prophylaxis: Protonix Routine AM labs Code status: Full code; PCP: Key Brambila PA-C
[2017-12-23] MEDS ORDERED: LACTOBACILLUS COMBINATION NO 4 PO SCH (09:00)
[2017-12-23] MEDS ORDERED: Levofloxacin/Dextrose 5%-Water 100 ML IV ONE (09:33)
[2017-12-23] MEDS: Saccharomyces Boulardii (Probiotic) 250 MG Cap PO SCH (09:47)
[2017-12-23] MEDS: Terazosin 5 MG Cap PO SCH (09:47)
[2017-12-23] MEDS: Simvastatin 10 MG Tab PO SCH (09:48)
[2017-12-23] MEDS: Loratadine 10 MG Tab PO SCH (09:48)
[2017-12-23] MEDS: Levofloxacin/Dextrose 5%-Water 500 MG in Premix Bag 1 BAG IV SCH (09:50)
--- NOTE | 2017-12-23 13:45 | CT ---
CT chest Technique: Multiple axial sections through the chest were obtained. Intravenous contrast was not utilized. Comparison: Prior chest x-ray of 12/22/17. Findings: Mediastinum and hilar regions show no adenopathy or mass. Small portion of the visualized upper abdominal structures are within normal limits. Small nodule noted within the right lung base measuring 6 mm. Mild linear atelectasis or scarring is seen within the lingula. No additional nodule is seen. Nodule on chest x-ray likely correlates to a vascular confluence. Impression: 1. Small 6 mm nodule within the right lung base. If patient is a smoker, recommend follow-up noncontrast chest CT in one year. If patient is not a smoker, this can be ignored. 2. Other incidental findings. Nodule noted on chest x-ray not confirmed on CT exam and likely represented vascular confluence. Diagnostic code #9 [employer] T[employer] Slitter called report to Stan Galindo at [id number] on 12/23/2017
[2017-12-23] MEDS ORDERED: Sodium Chloride 0.65% Nasal Spray 45 ML Bottle NAS PRN (16:07)
[2017-12-23] MEDS: Temazepam 15 MG Cap PO PRN (21:32)
[2017-12-24] MEDS: Levofloxacin/Dextrose 5%-Water 500 MG in Premix Bag 1 BAG IV SCH (08:14)
[2017-12-24] MEDS: Saccharomyces Boulardii (Probiotic) 250 MG Cap PO SCH (08:14)
[2017-12-24] MEDS: Terazosin 5 MG Cap PO SCH (08:19)
[2017-12-24] MEDS: Loratadine 10 MG Tab PO SCH (08:20)
[2017-12-24] MEDS: Simvastatin 10 MG Tab PO SCH (08:20)
[2017-12-24 08:25] VITALS: BP 133/84
[2017-12-24] MEDS ORDERED: Pantoprazole 40 MG Tab.CR PO SCH (09:00)
[2017-12-24] MEDS ORDERED: Losartan 25 MG Tab PO SCH (09:00)
--- NOTE | 2017-12-24 09:21 | PCM.DCSUM1 ---
Discharge Summary - Hospital Course HPI Initial Comments: Tam Devlin is a 42 yo male who presented to our ED yesterday evening with complaints of fever, rigors, dysuria, increased urinary frequency, decrease in urine amount, and pain along the right inguinal region which radiates into the right flank and back. Reports symptoms started 2 weeks ago and have been getting worse. He reports the fever started last night and he has had a slight cough with some intermittent shortness of breath. He was seen in the local clinic and a UA was obtained which was negative. He was sent home with a Cipro prescription as his rectal exam noted a large prostate and pain on palpation. He reportedly had symptoms which were similar approximate one year ago and this resolved without treatment. Denies any testicular pain or swelling. Denies hematuria, diarrhea, constipation, or hematochezia. In the ED temperature was 100.4. Pulse was 113. Respirations 18. BP 126/61. Pulse ox 96%. Labs were obtained: W CBC was elevated at 10.32. Hemoglobin good at 15.1. Hematocrit 43.4. He is normocytic. Platelet are good at 202, 000. Neutrophils are elevated at 90.6. PT is 12. INR 1.10. APTT is 26. Sodium is 139. Potassium 3.4. Chloride is 105. Carbon dioxide low at 19. Anion gap is quite high at 18.4. BUN is high at 19. Creatinine is high at 1.4. EGFR is 55. Glucose is high at 160. Calcium is 9.3. Bilirubin 1.0. Liver enzymes looked good with AST at 22, ALT of 34, alkaline phosphatase of 87. Protein is 7.2. Albumin 3.6. Lactic acid is 1.3. Total bilirubin is 1.0. CRP is 4.8. UA is obtained and is negative however trace lysed occult blood 5-10 WBCs are noted. He is given 975 mg by mouth Tylenol and started on 750 mg of Levaquin. He is given a 3100 mL fluid bolus. Urine cultures ordered. Blood cultures were ordered. CT of the abdomen and pelvis with contrast is obtained and interpreted by Dr. Cabrera as "1. Mild thickening of the distal esophageal wall possibly due to chronic esophageal reflux disease. 2. Several diverticula without findings of diverticulitis at the junction of the descending and sigmoid colon. 3. Other incidental findings noted above." Chest x-rays obtained and compared to prior chest x-ray from 2016. This is interpreted by Dr. Cabrera as "1. Nodular density with the left hilum, noncontrast chest CT recommended. 2. Other incidental findings. Nothing acute is otherwise seen." He carries a history of: HLD, chronic diarrhea, hematuria. He was never a smoker. He is a full code. His PCP is Key David PA-C. He is subsequently admitted to the medical floor observation status. Diagnosis: Stroke: No - Discharge Data Discharge Date: 12/24/17 (Admit date: 12/22/17) Discharge Disposition: Home, Self-Care 01 Condition: Good - Discharge Diagnosis/Problem(s) (1) HLD (hyperlipidemia) SNOMED Code(s): 35794791 ICD Code: E78.5 - HYPERLIPIDEMIA, UNSPECIFIED Status: Acute Priority: High Current Visit: Yes (2) Prostatitis, acute SNOMED Code(s): 62547544 ICD Code: N41.0 - ACUTE PROSTATITIS Status: Acute Priority: High Current Visit: Yes - Patient Summary/Data Labs Pending at D/C: Urine cultures pending. Recommended Follow-up Testing/Procedures: Follow-up with PCP within 10-14 days, sooner if needed Hospital Course: I/P: Acute: Prostatitis -Reports fever, rigors, increased urine frequency and decreased amount. 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 -WBC 10.32-->6.46-->7.37 -CRP 4.8-->5.4-->3 -Tylenol for pain/fever; other pain meds as ordered -Fluids as ordered -Continue home probiotic -Levaquin started in ED - continue -Hytrin 5mg PO dialy -Ambulate -Blood culture - negative after one day -Urine cultures pending Lung nodule -Nodular density noted within left hilum on CXR -Radiology recommending non-contrast chest CT, obtained 12/23/17 -Small 6mm nodule in right lung base. Patient is non-smoker so this can be ignored, per Dr. Cabrera -Nodule noted in CXR not confirmed in CT and likely represents vascular confluence. -Non-smoker Mild thickening of distal esophagus on CT -Likely due to chronic GERD -Has not had symptoms of GERD -Denies PPI/H2 farhan use in past -Will start PO protonix here -PCP to follow-up Chronic: HLD Chronic diarrhea Hematuria Plan: Admit to medical floor observation status Other orders as indicated above Home medications as ordered He is ambulatory so no need for PT/OT now DVT Prophylaxis: Ambulate and SCDs GI Prophylaxis: Protonix Routine AM labs Code status: Full code; PCP: Key Brambila PA-C Overall Tam did very well. His symptoms resolved and he noted no concerns with urination or rectal pain. He has been up ambulating without difficulty. He received levaquin while here and this will be continued on discharge for 12 more days starting 12/25/17. He has also been getting Hytrin and this will be continued on discharge for 13 days. He was instructed to avoid activities that would put pressure on his prostate and seek medical care if symptoms return. Blood cultures were negative after 1.5 days. A possible nodule was noted on CXR and CT scan was advised. Ct was obtained and shows 6mm nodule in right lower lung, however per Dr. Cabrera, since he is not a smoker this can be ignored. What was observed on chest X-ray was not observed on CT. He was found to have thickening of the distal esophagus. He was started on a PPI. He denies any GERD symptoms. Can consider EGD to confirm diagnosis. He will be discharged today. He should follow-up with his PCP within 10-14 days of discharge, sooner if needed. - Patient Instructions Diet: Regular Diet as Tolerated Activity: As Tolerated Activity, Other: Avoid Bike riding, Horse riding, 4-levi riding, or anything you straddle Driving: May Drive Today Other/Special Instructions: -Follow-up with PCP with-in 10-14 days, sooner if needed. -If you experience urinary pain, fever, difficutly starting to urinate , purulent drainage from your penis, pain with ejaculation or erection, or pain while sitting, contact your primary care provider, or see a walk-in clinic. You may also return to the Ed. -Take it easy at work. Take frequent breaks and ambulate. No work restrictions. -Avoid sitting for long periods of time. -Do not ride hores, bike, motorcycle, or anything you straddle while riding until cleared by primary care provider. -Take all medications as prescribed. - Resume your usual home meds, including your probiotic. -Stop prior antibiotic. -Take your antibiotics until you run out, even if feeling 100% better. - Contact primary care provider, walk-in clinic, or return to the ED should symptoms return or above symptoms appear. - Discharge Plan *PRESCRIPTION DRUG MONITORING PROGRAM REVIEWED*: No *COPY OF PRESCRIPTION DRUG MONITORING REPORT IN PATIENT TAVIA: No Prescriptions/Med Rec: Levofloxacin 500 mg PO DAILY #12 tablet Pantoprazole Sodium [Protonix] 40 mg PO DAILY #20 tablet. Terazosin [Hytrin] 5 mg PO DAILY #13 cap Home Medications: Home Meds Fluticasone Propionate [Flonase] 1 spray NASBOTH DAILY PRN 12/11/15 [History] atorvaSTATin Calcium [Atorvastatin Calcium] 10 mg PO BEDTIME 12/11/15 [History] Lactobacillus Combination No.4 [Probiotic] 1 each PO DAILY 01/07/16 [History] Loratadine [Claritin] 10 mg PO DAILY 12/22/17 [History] Losartan Potassium 25 mg PO DAILY 12/23/17 [History] Levofloxacin 500 mg PO DAILY #12 tablet 12/24/17 [Rx] Pantoprazole Sodium [Protonix] 40 mg PO DAILY #20 tablet. 12/24/17 [Rx] Terazosin [Hytrin] 5 mg PO DAILY #13 cap 12/24/17 [Rx] Patient Handouts: Prostatitis, [id number], What You Need to Know About Smokeless Tobacco Use Forms: ED Department Discharge Referrals: Key Brambila PA [Primary Care Provider] - (Follow-up with having a chest CT done.) - Discharge Summary/Plan Comment DC Time >30 min.: Yes (45 mins) - General Info Date of Service: 12/24/17 Admission Dx/Problem (Free Text: Admission Diagnosis/Problem Admission Diagnosis/Problem Prostatitis Functional Status: Reports: Pain Controlled, Tolerating Diet, Ambulating, Urinating. Denies: New Symptoms - Review of Systems General: Reports: No Symptoms. Denies: Fever, Weakness, Fatigue, Malaise HEENT: Reports: No Symptoms. Denies: Ear Pain, Eye Pain, Sore Throat Pulmonary: Reports: No Symptoms. Denies: Shortness of Breath, Cough, Sputum, Wheezing Cardiovascular: Reports: No Symptoms. Denies: Chest Pain, Palpitations, Dyspnea on Exertion, Edema, Lightheadedness Gastrointestinal: Reports: No Symptoms. Denies: Abdominal Pain, Constipation, Diarrhea, Nausea, Vomiting Genitourinary: Reports: No Symptoms. Denies: Dysuria, Frequency, Burning, Pain , Urgency, Incontinence, Hematuria, Flank Pain Musculoskeletal: Reports: No Symptoms. Denies: Neck Pain, Back Pain Skin: Reports: No Symptoms Neurological: Reports: No Symptoms. Denies: Confusion Psychiatric: Reports: No Symptoms - Patient Data Vitals - Most Recent: Last Vital Signs Temp 97.5 F 12/24/17 08:17 Pulse 82 12/24/17 08:17 Resp 18 12/24/17 08:17 BP 133/84 12/24/17 08:20 Pulse Ox 94 L 12/24/17 08:17 Weight - Most Recent: 227 lb 1 oz I&O - Last 24 hours: Intake & Output 12/23/17 12/24/17 12/24/17 22:59 06:59 14:59 Intake Total 2003 2083 Output Total 1250 Balance 754 2084 Lab Results - Last 24 hrs: Laboratory Results - last 24 hr 12/23/17 12/24/17 12/24/17 Range/Units 06:20 05:35 05:35 WBC 7.37 (4.23-9.07) K/mm3 RBC 4.79 (4.63-6.08) M/mm3 Hgb 15.0 (13.7-17.5) gm/L Hct 43.7 (40.1-51.0) % MCV 91.2 (79.0-92.2) fl MCH 31.3 (25.7-32.2) pg MCHC 34.3 (32.2-35.5) g/dl RDW Std Deviation 42.8 (35.1-43.9) fL Plt Count 193 (163-337) K/mm3 MPV 10.4 (9.4-12.3) fl Neut % (Auto) 55.4 (34.0-67.9) % Lymph % (Auto) 29.0 (21.8-53.1) % [place] % (Auto) 12.3 H (5.3-12.2) % Eos % (Auto) 2.7 (0.8-7.0) Baso % (Auto) 0.3 (0.1-1.2) % Neut # (Auto) 4.08 (1.78-5.38) K/mm3 Lymph # (Auto) 2.14 (1.32-3.57) K/mm3 [place] # (Auto) 0.91 H (0.30-0.82) K/mm3 Eos # (Auto) 0.20 (0.04-0.54) K/mm3 Baso # (Auto) 0.02 (0.01-0.08) K/mm3 Sodium 140 (136-145) mEq/L Potassium 4.1 (3.5-5.1) mEq/L Chloride 108 H (98-107) mEq/L Carbon Dioxide 20 L (21-32) mEq/L Anion Gap 16.1 H (5-15) BUN 10 (7-18) mg/dL Creatinine 1.0 (0.7-1.3) mg/dL Est Cr Clr Drug Dosing 106.53 mL/min Estimated GFR (MDRD) > 60 (>60) mL/min BUN/Creatinine Ratio 10.0 L (14-18) Glucose 133 H (74-106) mg/dL Hemoglobin A1c 5.70 (4.50-6.20) % Calcium 8.5 (8.5-10.1) mg/dL Magnesium 2.0 (1.8-2.4) mg/dl C-Reactive Protein 3.0 H* (<1.0) mg/dL JENIFER Results - Last 24 hrs: Microbiology 12/22/17 16:53 Aerobic Blood Culture - Preliminary Blood - Venous - Lab Draw NO GROWTH AFTER 1 DAY Anaerobic Blood Culture - Preliminary NO GROWTH AFTER 1 DAY 12/22/17 16:47 Aerobic Blood Culture - Preliminary Blood - Venous NO GROWTH AFTER 1 DAY Anaerobic Blood Culture - Preliminary NO GROWTH AFTER 1 DAY Med Orders - Current: Current Medications Acetaminophen (Tylenol) 650 mg PO Q4H PRN PRN Reason: Pain (Mild 1-3)/fever Hydrocodone Bitart/Acetaminophen ([place] 325-5 Mg) 1 tab PO Q4H PRN PRN Reason: Pain (moderate 4-6) Albuterol/Ipratropium (Duoneb 3.0-0.5 Mg/3 Ml) 3 ml NEB Q4H PRN PRN Reason: Shortness Of Breath/wheezing Bisacodyl (Dulcolax) 5 mg PO DAILY PRN PRN Reason: Constipation Docusate Sodium (Colace) 100 mg PO BID PRN PRN Reason: Constipation Flunisolide (Nasalide Nasal [place]) 0 ml NASBOTH Q12H [facility] Last Admin: 12/23/17 22:29 Dose: Not Given Hydralazine HCl (Apresoline) 20 mg IVPUSH Q4H PRN PRN Reason: Hypertension Hydromorphone HCl (Dilaudid) 0.5 mg IVPUSH Q4H PRN PRN Reason: Pain (severe 7-10) Promethazine HCl 12.5 mg/ (Sodium Chloride) 50.5 mls @ 100 mls/hr IV Q6H PRN PRN Reason: Nausea/Vomiting Levofloxacin/Dextrose 500 mg/ (Premix) 100 mls @ 100 mls/hr IV Q24H [facility] Last Admin: 12/24/17 08:14 Dose: 100 mls/hr Loratadine (Claritin) 10 mg PO DAILY [facility] Last Admin: 12/24/17 08:20 Dose: 10 mg Lorazepam (Ativan) 2 mg IVPUSH Q4H PRN PRN Reason: Seizures Lorazepam (Ativan) 1 mg IV Q6H PRN PRN Reason: Anxiety Losartan Potassium (Cozaar) 25 mg PO DAILY [facility] Last Admin: 12/24/17 08:20 Dose: 25 mg Magnesium Sulfate (Pharmacy To Dose - Magnesium Replacement) 0 dose .XX ASDIRECTED PRN PRN Reason: RX TO DOSE MAG Metoprolol Tartrate (Lopressor) 5 mg IVPUSH Q4H PRN PRN Reason: Tachycardia Miscellaneous Information (Remove Patch) 1 ea TRDERM DAILY [facility] Last Admin: 12/24/17 08:28 Dose: 1 ea Nicotine (Habitrol) 21 mg TRDERM DAILY PRN PRN Reason: Nicotine Dependence Ondansetron HCl (Zofran) 4 mg IV Q6H PRN PRN Reason: Nausea/Vomiting Pantoprazole Sodium (Protonix) 40 mg PO DAILY [facility] Last Admin: 12/24/17 08:20 Dose: 40 mg Polyethylene Glycol (Miralax) 17 gm PO DAILY PRN PRN Reason: Constipation Potassium Chloride (Pharmacy To Dose - Potassium Replacement) 0 dose .XX ASDIRECTED PRN PRN Reason: RX TO DOSE K Saccharomyces Boulardii (Florastor) 250 mg PO DAILY [facility] Last Admin: 12/24/17 08:14 Dose: 250 mg Senna/Docusate Sodium (Senna Plus) 1 tab PO BID PRN PRN Reason: Constipation Simvastatin (Zocor) 10 mg PO DAILY [facility] Last Admin: 12/24/17 08:20 Dose: 10 mg Sodium Chloride ([place] Nasal [place]cock) 0 ml FAN QID PRN PRN Reason: Dryness Last Admin: 12/23/17 21:45 Dose: 1 spray Temazepam (Restoril) 15 mg PO BEDTIME PRN PRN Reason: Sleep Last Admin: 12/23/17 21:32 Dose: 15 mg Terazosin HCl (Hytrin) 5 mg PO DAILY [facility] Last Admin: 12/24/17 08:19 Dose: 5 mg Discontinued Medications Acetaminophen (Tylenol) 975 mg PO NOW ONE Stop: 12/22/17 16:26 Last Admin: 12/22/17 16:32 Dose: 975 mg Diatrizoate Meglum/Diatrizoate Sod (Gastrografin 37%) 120 ml PO ONETIME ONE Stop: 12/22/17 17:08 Last Admin: 12/22/17 18:13 Dose: 120 ml Levofloxacin/Dextrose 750 mg/ (Premix) 150 mls @ 100 mls/hr IV Q24H ONE Stop: 12/22/17 17:53 Last Admin: 12/22/17 16:35 Dose: 100 mls/hr Sodium Chloride (Normal Saline) 1,000 mls @ 999 mls/hr IV ASDIRECTED ONE Stop: 12/22/17 17:24 Last Admin: 12/22/17 16:35 Dose: 999 mls/hr Sodium Chloride (Normal Saline) 1,000 mls @ 999 mls/hr IV ONETIME ONE Stop: 12/22/17 17:47 Last Admin: 12/22/17 19:03 Dose: 999 mls/hr Sodium Chloride (Normal Saline) 1,000 mls @ 999 mls/hr IV ASDIRECTED [facility] Sodium Chloride (Normal Saline) 500 mls @ 999 mls/hr IV .BOLUS ONE Stop: 12/22/17 17:18 Last Admin: 12/22/17 20:14 Dose: 999 mls/hr Sodium Chloride (Normal Saline) 1,000 mls @ 100 mls/hr IV ASDIRECTED [facility] Last Admin: 12/23/17 21:32 Dose: 100 mls/hr Levofloxacin/Dextrose (Levaquin In D5w 500 Mg/100 Ml) Confirm Administered Dose 100 mls @ as directed IV .STK-MED ONE Stop: 12/23/17 09:34 Last Admin: 12/23/17 10:48 Dose: Not Given Iopamidol (Isovue-300 (61%)) 150 ml IVPUSH ONETIME ONE Stop: 12/22/17 17:08 Last Admin: 12/22/17 18:13 Dose: 150 ml Non-Formulary Medication (Lactobacillus Combination No.4 [Probiotic]) 1 each PO DAILY [facility] Potassium Chloride (Klor-Con M20) 40 meq PO Q4H [facility] Stop: 12/23/17 04:01 Last Admin: 12/23/17 06:39 Dose: 40 meq Potassium Chloride (Klor-Con M20) 40 meq PO Q4H [facility] Stop: 12/23/17 06:46 Last Admin: 12/23/17 06:55 Dose: Not Given - Exam Quality Assessment: Reports: DVT Prophylaxis General: Reports: Alert, Oriented, Cooperative, No Acute Distress HEENT: Reports: Pupils Equal, Pupils Reactive, EOMI, Mucous Membr. Moist/[place] Neck: Reports: Supple, Trachea Midline, No JVD, No Thyromegaly Lungs: Reports: Clear to Auscultation, Normal Respiratory Effort Cardiovascular: Reports: Regular Rate, Regular Rhythm GI/Abdominal Exam: Normal Bowel Sounds, Soft, Non-Tender, No Distention, No Abnormal Bruit (Male) Exam: Deferred. No: Urethral Discharge Rectal (Males) Exam: Deferred Back Exam: Reports: Normal Inspection, Full Range of Motion Extremities: Normal Inspection, Normal Range of Motion, Non-Tender, No Pedal Edema, Normal Capillary Refill Skin: Reports: Warm, Dry, Intact Wound/Incisions: Reports: Healing Well Neurological: Reports: No New Focal Deficit Psy/Mental Status: Reports: Alert, Normal Affect, Normal Mood
== END 2017-12-24 11:05 | disposition home or self-care (01) ==
LOC: JD.ED 15:42 → JD.MS 20:30
PROVIDERS: ADMIT Internal Medicine; ATTEND Internal Medicine
DX: N41.0 Acute prostatitis (principal); I10 Essential (primary) hypertension; F17.220 Nicotine dependence, chewing tobacco, uncomplicated; R91.1 Solitary pulmonary nodule; R93.3 Abnormal findings on diagnostic imaging of other parts of digestive tract; E78.5 Hyperlipidemia, unspecified; Z79.899 Other long term (current) drug therapy
CPT/HCPCS: 36415; 71045; 71250; 74177; 80048; 80053; 81001; 82247; 83036; 83605; 83735; 85025; 85610; 85730; 86140; 87040; 87086; 96361; 96365; 99285; A9270; J1956; J7040; Q9963; Q9967; 96366; G0378

== ENCOUNTER 2020-02-29 10:24 | Emergency (ER) | payer BC ==
[2020-02-29] MEDS ORDERED: Cyclobenzaprine 10 MG Tab PO ONE (10:58)
[2020-02-29] MEDS ORDERED: Ketorolac 60 MG/2 ML SDV IM ONE (10:58)
[2020-02-29] MEDS ORDERED: HYDROmorphone 1 MG/ML Syringe IM ONE (10:58)
--- NOTE | 2020-02-29 11:12 | EDM.PDOC ---
ED HPI GENERAL MEDICAL PROBLEM - General Chief Complaint: Back Pain or Injury Stated Complaint: BACK PAIN Time Seen by Provider: 02/29/20 10:36 Source of Information: Reports: Patient History Limitations: Reports: No Limitations - History of Present Illness INITIAL COMMENTS - FREE TEXT/NARRATIVE: The patient presents with low back pain. This started on Wednesday. He denies any injury such as lifting, falling or twisting. He has had trouble with his back before. He has no numbness, weakness, bowel or bladder problems. The pain is in the low back to the left. 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 Lower Back Pain Score (Numeric/FACES): 10 - Related Data Allergies Allergy/AdvReac Type Severity Reaction Status Date / Time No Known Allergies Allergy Verified 02/29/20 10:35 Home Meds: Home Meds atorvaSTATin Calcium [Atorvastatin Calcium] 10 mg PO BEDTIME 12/11/15 [History] Losartan Potassium 25 mg PO DAILY 12/23/17 [History] Cholecalciferol (Vitamin D3) [Vitamin D3] 1,000 unit PO DAILY 02/29/20 [History] Cyclobenzaprine [Flexeril] 10 mg PO TID PRN #20 tab 02/29/20 [Rx] Hydrocodone/Acetaminophen [Hydrocodone-Acetamin 5-325 mg] 1 - 2 each PO Q6HR PRN #10 tablet 02/29/20 [Rx] Tamsulosin [Tamsulosin 24 Hr] 0.4 mg PO DAILY 02/29/20 [History] Past Medical History - Past Health History Medical/Surgical History: Denies Medical/Surgical History HEENT History: Reports: None Cardiovascular History: Reports: High Cholesterol, Hypertension Respiratory History: Reports: None Gastrointestinal History: Reports: Other (See Below) Other Gastrointestinal History: lower abdominal pain-recently off and on Genitourinary History: Reports: Prostate Disorder, Other (See Below) Other Genitourinary History: hematuria just recently with this diagnosis Neurological History: Reports: None Psychiatric History: Reports: None Endocrine/Metabolic History: Reports: None Hematologic History: Reports: None Immunologic History: Reports: None Oncologic (Cancer) History: Reports: None Dermatologic History: Reports: None - Infectious Disease History Infectious Disease History: Reports: Chicken Pox - Past Surgical History Head Surgeries/Procedures: Reports: None HEENT Surgical History: Reports: Oral Surgery GI Surgical History: Reports: Appendectomy, Colonoscopy Musculoskeletal Surgical History: Reports: Other (See Below) Other Musculoskeletal Surgeries/Procedures:: collar bone sx, kush in leg, and cervical sx Social & Family History - Family History Family Medical History: No Pertinent Family History - Tobacco Use Tobacco Use Status *Q: Never Tobacco User - Caffeine Use Caffeine Use: Reports: Coffee - Recreational Drug Use Recreational Drug Use: No ED ROS GENERAL - Review of Systems Review Of Systems: See Below Constitutional: Reports: No Symptoms HEENT: Reports: No Symptoms Respiratory: Reports: No Symptoms Cardiovascular: Reports: No Symptoms Endocrine: Reports: No Symptoms GI/Abdominal: Reports: No Symptoms : Reports: No Symptoms Musculoskeletal: Reports: Back Pain ED EXAM,LOWER BACK PAIN/INJURY - Physical Exam Exam: See Below Exam Limited By: No Limitations General Appearance: Alert, No Apparent Distress Ears: Normal External Exam Nose: Normal Inspection Head: Atraumatic, Normocephalic Neck: Normal Inspection Respiratory/Chest: No Respiratory Distress, Lungs Clear, Normal Breath Sounds Cardiovascular: Regular Rate, Rhythm, No Edema, No Murmur GI/Abdominal: Soft, Non-Tender, No Organomegaly, No Mass Back Exam: Other (Pain upon palpation to the left lower back) Extremities: Normal Inspection Neurological: Alert, No Motor/Sensory Deficits, Oriented x 3 Course - Vital Signs Last Recorded V/S: Last Vital Signs Temp 97.2 F 02/29/20 10:41 Pulse 92 02/29/20 10:41 Resp 16 02/29/20 10:41 BP 164/104 H 02/29/20 10:41 Pulse Ox 98 02/29/20 10:41 - Orders/Labs/Meds Meds: Medications Discontinued Medications Generic Name Dose Route Start Last Admin Trade Name Freq PRN Reason Stop Dose Admin Cyclobenzaprine HCl 10 mg 02/29/20 10:58 02/29/20 11:05 Flexeril PO 02/29/20 10:59 10 mg ONETIME ONE Administration Hydromorphone HCl 1 mg 02/29/20 10:58 02/29/20 11:06 Dilaudid IM 02/29/20 10:59 1 mg ONETIME ONE Administration Ketorolac Tromethamine 60 mg 02/29/20 10:58 02/29/20 11:07 Toradol IM 02/29/20 10:59 60 mg ONETIME ONE Administration - Re-Assessments/Exams Free Text/Narrative Re-Assessment/Exam: 02/29/20 11:10 I ordered dilaudid 1mg IM, toradol 60mg and flexeril 10mg by mouth. Departure - Departure Time of Disposition: 11:15 Disposition: Home, Self-Care 01 Condition: Good Clinical Impression: Low back pain Qualifiers: Chronicity: acute Back pain laterality: left Sciatica presence: without sciatica Qualified Code(s): M54.5 - Low back pain - Discharge Information *PRESCRIPTION DRUG MONITORING PROGRAM REVIEWED*: Not Applicable *COPY OF PRESCRIPTION DRUG MONITORING REPORT IN PATIENT TAVIA: Not Applicable Prescriptions: Cyclobenzaprine [Flexeril] 10 mg PO TID PRN #20 tab PRN Reason: Pain Hydrocodone/Acetaminophen [Hydrocodone-Acetamin 5-325 mg] 1 - 2 each PO Q6HR PRN #10 tablet PRN Reason: Pain Referrals: PCP,None [Primary Care Provider] - Forms: ED Department Discharge, ED Return to Work/School Form Additional Instructions: Take motrin or aleve for pain. If that does not help try the flexeril and hydrocodone. Follow up with your doctor. Please return if you are worse. Sepsis Event Note (ED) - Evaluation Sepsis Screening Result: No Definite Risk - Focused Exam Vital Signs: Vital Signs Temp Pulse Resp BP Pulse Ox 02/29/20 10:41 97.2 F 92 16 164/104 H 98
[2020-02-29 11:33] VITALS: BP 151/99; PULSE 82
== END 2020-02-29 11:38 | disposition home or self-care (01) ==
LOC: JD.ED 10:24
DX: M54.5 Low back pain (principal); E78.00 Pure hypercholesterolemia, unspecified; I10 Essential (primary) hypertension; N42.9 Disorder of prostate, unspecified; Z79.899 Other long term (current) drug therapy
CPT/HCPCS: 96372; 99283; A9270; J1170; J1885

== ENCOUNTER 2023-07-20 03:17 | Emergency (ER) | payer SELFPAY ==
[2023-07-20 04:22] LABS: APPEARANCE,URINE CLEAR (Clear); BILIRUBIN,URINE NEGATIVE (Negative); COLOR,URINE YELLOW (Yellow); GLUCOSE,URINE NEGATIVE (Negative); KETONES,URINE TRACE (Negative); LEUKOCYTE ESTERASE,URINE NEGATIVE (Negative); NITRITE,URINE NEGATIVE (Negative); OCCULT BLOOD,URINE TRACE-INTACT (Negative); PROTEIN,URINE TRACE (Negative)
[2023-07-20 04:42] LABS: BACTERIA,URINE FEW /hpf (FEW); MUCUS,URINE FEW /hpf (FEW); WBC,URINE 0-5 /hpf (0-5)
[2023-07-20 05:50] LABS: ALBUMIN 3.5 g/dl (3.4-5.0); ANION GAP 16.1 (5-15); BUN/CREATININE RATIO 13.6 (14-18); C-REACTIVE PROTEIN 5.05 mg/dL (<0.30); CALCIUM 9.3 mg/dL (8.5-10.1); CREATININE 1.4 mg/dL (0.7-1.3); EST CRCL DRUG DOSING (CG) 72.13 mL/min; POTASSIUM,K 4.1 mEq/L (3.5-5.1); PROTEIN TOTAL,TP 7.1 g/dl (6.4-8.2)
[2023-07-20 05:54] LABS: BASOPHILS ABSOLUTE AUTO 0.1 K/mm3 (0.0-0.2); BASOPHILS PERCENT AUTO 0.3 % (0.0-1.0); EOSINOPHILS ABSOLUTE AUTO 0.1 K/mm3 (0.0-0.4); EOSINOPHILS PERCENT AUTO 0.7 % (0.0-6.0); HEMATOCRIT 42.3 % (42.0-52.0); HEMOGLOBIN 14.8 gm/dl (14.0-18.0); IMMATURE GRAN ABSOLUTE AUTO 0.08 K/mm3 (0.00-0.05); IMMATURE GRAN PERCENT AUTO 0.5 % (0.0-0.4); LYMPHOCYTES ABSOLUTE AUTO 0.8 K/mm3 (1.0-4.8); LYMPHOCYTES PERCENT AUTO 4.3 % (24.0-44.0); MEAN CORPUSCULAR HEMOGLOBIN 31.8 pg (28.0-32.0); MEAN CORPUSCULAR VOLUME 90.8 fl (83.0-99.0); MEAN PLATELET VOLUME 10.4 fl (9.4-12.4); MONOCYTES ABSOLUTE AUTO 1.1 K/mm3 (0.0-0.8); MONOCYTES PERCENT AUTO 6.4 % (0.0-8.0); NEUTROPHILS ABSOLUTE AUTO 15.2 K/mm3 (1.8-7.7); NEUTROPHILS PERCENT AUTO 87.8 % (41.0-71.0); PLATELET COUNT,PLT 179 K/mm3 (150-400); RED BLOOD CELL COUNT 4.66 M/mm3 (4.52-5.90)
[2023-07-20] MEDS: Levofloxacin 500 MG Tab PO ONE (06:23)
[2023-07-20 06:29] VITALS: BP 141/91; PULSE 90
== END 2023-07-20 06:28 | disposition home or self-care (01) ==
LOC: JD.ED 03:17
DX: N41.9 Inflammatory disease of prostate, unspecified (principal); I10 Essential (primary) hypertension; E78.00 Pure hypercholesterolemia, unspecified; F17.210 Nicotine dependence, cigarettes, uncomplicated; Z90.49 Acquired absence of other specified parts of digestive tract; Z79.899 Other long term (current) drug therapy
CPT/HCPCS: 36415; 74176; 80053; 81001; 85025; 86140; 99284; A9270; 99283